=== PATIENT | female | born 1955 | race Caucasian/White ===

== ENCOUNTER 2016-04-06 11:06 | Observation (INO) | payer OTHER ==
[~2016-04-06] VITALS: Ht 162.6 cm; Wt 64.3 kg
[~2016-04-06 11:06] MED LIST: ACIPHEX20 MG PO; ALBUTEROL2.5 MG/3 M; APRISO0.375 GM PO; BACTRIM,SEPT1 TABLET PO; BUDESONIDE EC3 MG PO; CIPROFLOXACIN500 M1 PO; CLINDAMYCIN HC300 MG PO; FLAGYL500 MG PO; FLONASE16 G1 BOTH NARES; FLORASTOR250 MG PO; LEVAQUIN500 MG PO; LEVAQUIN750 MG PO; LEVOFLOXACIN750 MG PO; LEVOTHYROXINE88 MCG PO; METRONIDAZOLE500 MG PO; PREDNISOLONE AC15 ML RIGHT EYE; PREDNISONE20 MG PO; PROAIR HFA8.5 GM IH; PROBIOTIC ACID1 EAC1 PO; PROBIOTIC DIGE1 EACH PO; PROMETHAZINE HC25 M1 PO; PROVENTIL,2.5 MG/3 M IH; PYRIDIUM100 MG PO; PYRIDIUM200 MG PO; SYNTHROID88 MCG PO; VITAMIN D2000 UNI1 PO; [UNRECOGNIZED DRUG - OTHER] PO
[2016-04-06 11:50] LABS: BASOPHIL COUNT 0.1 K/uL (0-0.1); EOSINOPHIL (%) 0.6 % (0-5); EOSINOPHIL COUNT 0.1 K/uL (0-0.3); HEMATOCRIT 43.9 % (36.0-46.0); IMMATURE GRANULOCYTE (%) 0.5 % (0.0-0.7); IMMATURE GRANULOCYTE COUNT 0.7 K/uL; LYMPHOCYTE COUNT 3.5 K/uL (1.0-2.8); MCH 29.2 PG (29.0-34.0); MCHC 34.6 G/DL (30.0-36.0); MCV 84.4 FL (83-99); MEAN PLAT.VOLUME 9.5 uM^3 (9.5-12.4); MONOCYTE (%) 7.2 % (3-12); MONOCYTE COUNT 1.1 K/uL (0-0.8); NEUTROPHIL (%) 67.6 % (45-76); NEUTROPHIL COUNT 10.1 K/uL (1.8-6.4); PLATELET COUNT 355 K/uL (156-360); RBC DIS.WIDTH-CV 12.6 % (11.8-14.6); RBC DIS.WIDTH-SD 38.5 % (39-53); WHITE BLOOD COUNT 14.9 K/uL (4.1-10.2)
[2016-04-06 12:00] LABS: INTER. NORMALIZED RATIO 1.1; PTT 30.6 (25-32)
[2016-04-06 12:03] LABS: CHLORIDE 105 mEq/L (99-109); POTASSIUM 4.1 mEq/L (3.7-5.4); SODIUM 140 mEq/L (136-147)
[2016-04-06 12:05] LABS: GLUCOSE 113 mg/dL (70-99)
[2016-04-06 12:06] LABS: ANION GAP 11 MEQ/L (2-14)
[2016-04-06 12:07] LABS: TOTAL BILIRUBIN 0.5 mg/dL (0.0-1.0)
[2016-04-06 12:09] LABS: ALKALINE PHOSPHATASE 72 IU/L (3-129); GFR ESTIMATE (CALCULATED) > 59 mL/min/
[2016-04-06 12:10] LABS: UREA NITROGEN (BUN) 13 mg/dL (9-23)
[2016-04-06 12:11] LABS: TROP-I INTERPRETATION NEGATIVE; TROPONIN-I < 0.01 ng/mL (0.0-0.30)
[2016-04-06] MEDS ORDERED: HYDROCHLOROTHIA25 MG PO (14:32)
[2016-04-06 15:07] LABS: D-DIMER ELISA 1.28 mg/L FEU (< 0.57)
[2016-04-06 15:35] VITALS: BP 122/66
[2016-04-06 18:07] LABS: TROP-I INTERPRETATION NEGATIVE; TROPONIN-I < 0.01 ng/mL (0.0-0.30)
[2016-04-06 20:00] VITALS: BP 103/56
[2016-04-06 23:21] LABS: TROP-I INTERPRETATION NEGATIVE; TROPONIN-I < 0.01 ng/mL (0.0-0.30)
[2016-04-06 23:28] VITALS: BP 111/58
[2016-04-07 03:49] VITALS: BP 116/58
[2016-04-07 07:27] LABS: ALKALINE PHOSPHATASE 55 IU/L (3-129); ANION GAP 9 MEQ/L (2-14); CHLORIDE 105 MEQ/L (99-109); GFR ESTIMATE (CALCULATED) > 59 mL/min/; GLUCOSE 103 mg/dL (70-99); POTASSIUM 4.2 MEQ/L (3.7-5.4); SAMPLE HEMOLYSIS CHECK 0; SAMPLE ICTERIC CHECK 0; SAMPLE LIPEMIA CHECK 0; SODIUM 139 MEQ/L (136-147); TOTAL BILIRUBIN 0.7 MG/DL (0.0-1.0); UREA NITROGEN (BUN) 12 mg/dL (9-23)
[2016-04-07 07:28] LABS: HEMATOCRIT 43.9 % (36.0-46.0); MCH 28.5 PG (29.0-34.0); MCHC 32.6 G/DL (30.0-36.0); MCV 87.5 FL (83-99); MEAN PLAT.VOLUME 10.6 uM^3 (9.5-12.4); PLATELET COUNT 289 K/uL (156-360); RBC DIS.WIDTH-CV 13.2 % (11.8-14.6); RBC DIS.WIDTH-SD 41.8 % (39-53); RED BLOOD COUNT 5.02 M/uL (3.80-5.20)
[2016-04-07 07:38] LABS: WHITE BLOOD COUNT 10.4 K/uL (4.1-10.2)
[2016-04-07 11:33] VITALS: BP 114/57
[2016-04-07 16:05] VITALS: BP 111/60
== END 2016-04-07 16:28 | disposition home or self-care (01) ==
LOC: EME 11:06 → 5WEST 14:12 → EDOF 14:12 → 5WEST 15:13
PROVIDERS: Emergency Medicine; Internal Medicine
DX: R07.89 Other chest pain (principal); M25.512 Pain in left shoulder; K50.00 Crohn's disease of small intestine without complications; I95.9 Hypotension, unspecified; K21.9 Gastro-esophageal reflux disease without esophagitis; E03.9 Hypothyroidism, unspecified; J44.9 Chronic obstructive pulmonary disease, unspecified; J45.909 Unspecified asthma, uncomplicated; I10 Essential (primary) hypertension; E66.9 Obesity, unspecified; Z87.891 Personal history of nicotine dependence
CPT/HCPCS: 70450; 71010; 78582; 80053; 84443; 84484; 85025; 85027; 85379; 85610; 85730; 93005; 94664; 99202; 99281; 99284; A9540; A9567; G0378; J1644; J7030

== ENCOUNTER 2017-04-11 07:45 | Emergency (ER) | payer OTHER ==
[~2017-04-11] VITALS: Ht 162.6 cm; Wt 61.2 kg
[~2017-04-11 07:45] MED LIST changes: +CIPRO500 MG PO; +HYDROCHLOROTHIA25 MG PO
[2017-04-11 08:52] LABS: HEMATOCRIT 45.2 % (36.0-46.0); HEMOGLOBIN 15.1 G/DL (11.9-15.5); MCH 28.9 PG (29.0-34.0); MCHC 33.4 G/DL (30.0-36.0); MCV 86.6 FL (83-99); PLATELET COUNT 337 K/uL (156-360); RBC DIS.WIDTH-CV 11.9 % (11.8-14.6); RBC DIS.WIDTH-SD 37.8 % (39-53); RED BLOOD COUNT 5.22 M/uL (3.80-5.20); WHITE BLOOD COUNT 12.2 K/uL (4.1-10.2)
[2017-04-11 09:28] LABS: ALBUMIN 4.2 g/dL (3.2-4.8)
[2017-04-11 09:29] LABS: CHLORIDE 109 mEq/L (99-109); POTASSIUM 4.2 mEq/L (3.7-5.4); SODIUM 139 mEq/L (136-147)
[2017-04-11 09:31] LABS: GLUCOSE 120 mg/dL (70-99); TOTAL PROTEIN 7.3 g/dL (6.4-8.3)
[2017-04-11 09:33] LABS: TOTAL BILIRUBIN 0.8 mg/dL (0.0-1.0)
[2017-04-11 09:34] LABS: ALKALINE PHOSPHATASE 80 IU/L (3-129); CREATININE 0.8 mg/dL (0.6-1.3); GFR ESTIMATE (CALCULATED) > 59 mL/min/
[2017-04-11 09:36] LABS: AST (GOT) 21 IU/L (2-34); UREA NITROGEN (BUN) 12 mg/dL (9-23)
[2017-04-11 09:37] LABS: ALT (GPT) 16 IU/L (3-49)
[2017-04-11 11:02] LABS: APPEARANCE SL.HAZY ((CLEAR)); BILIRUBIN NEGATIVE; BLOOD SMALL; COLOR AMBER ((YELLOW)); GLUCOSE (STRIP) NEGATIVE; KETONES 20; LEUKOCYTES MODERATE; NITRITE NEGATIVE; PROTEIN (STRIP) 30; SPECIFIC GRAVITY 1.025 (1.000-1.030)
[2017-04-11 11:29] LABS: BACTERIA RARE /HPF; EPITHELIAL CELLS 1+ /HPF; HYALINE CASTS 0-5 /LPF; MUCUS 3+ /LPF; UCUL ADDED? NO; WHITE BLOOD CELLS 0-5 /HPF (0-5)
[2017-04-11] MEDS ORDERED: PROMETHAZINE HC25 M1 PO (11:35)
[2017-04-11 12:04] VITALS: BP 140/91
== END 2017-04-11 12:07 | disposition home or self-care (01) ==
LOC: EME 07:45
PROVIDERS: Nurse Practitioner Family
DX: R10.30 Lower abdominal pain, unspecified (principal); D72.829 Elevated white blood cell count, unspecified; K58.0 Irritable bowel syndrome with diarrhea; K50.90 Crohn's disease, unspecified, without complications; K21.9 Gastro-esophageal reflux disease without esophagitis; J45.909 Unspecified asthma, uncomplicated; E03.9 Hypothyroidism, unspecified; F32.9 Major depressive disorder, single episode, unspecified; F17.200 Nicotine dependence, unspecified, uncomplicated; Z90.49 Acquired absence of other specified parts of digestive tract; Z86.73 Personal history of transient ischemic attack (TIA), and cerebral infarction without residual deficits; Z88.5 Allergy status to narcotic agent; Z88.1 Allergy status to other antibiotic agents; Z88.6 Allergy status to analgesic agent; Z88.0 Allergy status to penicillin; Z88.8 Allergy status to other drugs, medicaments and biological substances
CPT/HCPCS: 74176; 80053; 81003; 85027; 99281; 99285; J1885; J2765; J7030

== ENCOUNTER 2017-04-13 08:28 | Observation (INO) | payer OTHER ==
[~2017-04-13] VITALS: Ht 152.4 cm; Wt 61.4 kg
[2017-04-13 09:26] LABS: BASOPHIL (%) 0.4 % (0-1); BASOPHIL COUNT 0.1 K/uL (0-0.1); EOSINOPHIL (%) 0.4 % (0-5); EOSINOPHIL COUNT 0.1 K/uL (0-0.3); HEMATOCRIT 43.4 % (36.0-46.0); HEMOGLOBIN 14.5 G/DL (11.9-15.5); IMMATURE GRANULOCYTE (%) 0.5 % (0.0-0.7); LYMPHOCYTE COUNT 2.8 K/uL (1.0-2.8); MCH 28.9 PG (29.0-34.0); MCHC 33.4 G/DL (30.0-36.0); MCV 86.5 FL (83-99); MONOCYTE (%) 7.6 % (3-12); NEUTROPHIL (%) 69.1 % (45-76); NEUTROPHIL COUNT 8.9 K/uL (1.8-6.4); PLATELET COUNT 331 K/uL (156-360); RBC DIS.WIDTH-CV 11.9 % (11.8-14.6); RBC DIS.WIDTH-SD 37.6 % (39-53); RED BLOOD COUNT 5.02 M/uL (3.80-5.20); WHITE BLOOD COUNT 12.9 K/uL (4.1-10.2)
[2017-04-13 09:37] LABS: ALBUMIN 4.2 g/dL (3.2-4.8); CHLORIDE 114 mEq/L (99-109); POTASSIUM 4.3 mEq/L (3.7-5.4); SODIUM 140 mEq/L (136-147)
[2017-04-13 09:39] LABS: GLUCOSE 107 mg/dL (70-99); TOTAL PROTEIN 6.6 g/dL (6.4-8.3)
[2017-04-13 09:41] LABS: TOTAL BILIRUBIN 0.8 mg/dL (0.0-1.0)
[2017-04-13 09:43] LABS: ALKALINE PHOSPHATASE 76 IU/L (3-129); CREATININE 0.8 mg/dL (0.6-1.3); GFR ESTIMATE (CALCULATED) > 59 mL/min/
[2017-04-13 09:44] LABS: UREA NITROGEN (BUN) 11 mg/dL (9-23)
[2017-04-13 09:45] LABS: AST (GOT) 40 IU/L (2-34)
[2017-04-13 09:46] LABS: LIPASE 10 U/L (1.0-51.0)
[2017-04-13 09:47] LABS: ALT (GPT) 31 IU/L (3-49)
[2017-04-13 15:27] VITALS: BP 108/56
[2017-04-13 20:00] VITALS: BP 122/62
[2017-04-13 20:48] LABS: C DIFF TOXIN NEGATIVE (NEGATIVE)
[2017-04-14 00:06] VITALS: BP 140/67
[2017-04-14 05:24] LABS: HEMATOCRIT 37.3 % (36.0-46.0); HEMOGLOBIN 12.4 G/DL (11.9-15.5); MCH 28.7 PG (29.0-34.0); MCHC 33.2 G/DL (30.0-36.0); MCV 86.3 FL (83-99); NRBC (%) 0.3 /100 WBC (0-0); PLATELET COUNT 316 K/uL (156-360); RBC DIS.WIDTH-CV 11.9 % (11.8-14.6); RBC DIS.WIDTH-SD 37.2 % (39-53); RED BLOOD COUNT 4.32 M/uL (3.80-5.20); WHITE BLOOD COUNT 15.7 K/uL (4.1-10.2)
[2017-04-14 08:30] VITALS: BP 141/72
[2017-04-14] MEDS ORDERED: PREDNISONE10 MG PO (10:08)
== END 2017-04-14 10:52 | disposition home or self-care (01) ==
LOC: EME 08:28 → EDOF 10:34 → 5WEST 10:34 → ENRESERV 10:40 → EDOF 10:45 → ENRESERV 10:48 → 5WEST 11:31 → ENRESERV 16:40 → 5WEST 18:47 → ENPENDDIS 04-14 → 5WEST 04-14 10:52
PROVIDERS: Emergency Medicine Emergency Medical Services; Internal Medicine
DX: K50.80 Crohn's disease of both small and large intestine without complications (principal); R10.817 Generalized abdominal tenderness; J44.9 Chronic obstructive pulmonary disease, unspecified; I10 Essential (primary) hypertension; E03.9 Hypothyroidism, unspecified; Z90.49 Acquired absence of other specified parts of digestive tract; Z87.891 Personal history of nicotine dependence; Z88.0 Allergy status to penicillin; Z88.1 Allergy status to other antibiotic agents; Z88.5 Allergy status to narcotic agent; Z88.8 Allergy status to other drugs, medicaments and biological substances
CPT/HCPCS: 80053; 83690; 85025; 85027; 87493; 99281; 99285; G0378; J0780; J2405; J2930; J7040; J7120; Q0169